=== PATIENT | female | born 1980 | race Hispanic/Latino ===

== ENCOUNTER 2023-06-24 08:45 | Outpatient (CLI) | payer BC | END 2023-06-24 08:46 | disposition home or self-care (01) | LOC: BICMAMMO 08:45 | PROVIDERS: ATTEND Family Medicine | DX: Z12.31 Encounter for screening mammogram for malignant neoplasm of breast (principal); Z80.3 Family history of malignant neoplasm of breast | CPT/HCPCS: 77063; 77067 ==

== ENCOUNTER 2024-05-03 14:55 | Outpatient (CLI) | payer BC | END 2024-05-03 14:56 | disposition home or self-care (01) | LOC: BICCT 14:55 | PROVIDERS: ATTEND Family Medicine | DX: I72.9 Aneurysm of unspecified site (principal) | CPT/HCPCS: 70450 ==